=== PATIENT | female | born 1945 | race Caucasian/White ===

== ENCOUNTER → 2017-04-22 | Outpatient (CLI) | payer MEDICARE ==
[~2017-04-22] MED LIST: CHOL100012 PO; CRAN300T PO; LACT1CAP43 PO; LEVO25TA4 PO; LOVA40TA2 PO; NAPR220C2 PO; UBID100C24 PO; VALS1TAB24 PO; VIT1TABL32 PO; [UNRECOGNIZED DRUG - CODE] PO
[2017-04-22 09:13] LABS: HEMATOCRIT 45.4 % (34.6-47.8); HEMOGLOBIN 15.3 g/dL (11.7-16.4); WHITE BLOOD COUNT 8.1 x10^3/uL (3.4-10)
[2017-04-22 09:19] LABS: PATH.CAST-FLAG NOT PRESENT; SPERM-FLAG NOT PRESENT; SRC-FLAG NOT PRESENT; XTAL-FLAG NOT PRESENT; YLC-FLAG NOT PRESENT
[2017-04-22 09:26] LABS: ASPARTATE AMINO TRANSFERASE 15 U/L (15-37); BLOOD UREA NITROGEN 18 mg/dL (7-18)
== END | disposition home or self-care (01) ==
LOC: STAR 07:58
PROVIDERS: ATTEND Orthopaedic Surgery
DX: M16.12 Unilateral primary osteoarthritis, left hip (principal); R82.79 Other abnormal findings on microbiological examination of urine
CPT/HCPCS: 36415; 80053; 81001; 85025; 87081; 87086; 93005

== ENCOUNTER 2017-05-06 05:38 | Inpatient (IN) | payer MEDICARE ==
[~2017-05-06] VITALS: Ht 165.1 cm; Wt 68.0 kg
[2017-05-06] MEDS ORDERED: LACTATED RINGERS 1,000 ML IV SCH (06:14)
[2017-05-06 06:40] VITALS: BP 112/72
[2017-05-06] MEDS ORDERED: FENTANYL PF 100 MCG/2ML ONE (06:45)
[2017-05-06] MEDS ORDERED: MIDAZOLAM 1 MG/ML, 2ML ONE (06:45)
[2017-05-06] MEDS ORDERED: TRANEXAMIC ACID 100 MG/ML, 10ML ONE (06:47)
[2017-05-06] MEDS ORDERED: KETOROLAC 60 MG/2 ML ONE (06:47)
[2017-05-06] MEDS ORDERED: SODIUM CHLORIDE 0.9% 50 ML ONE (06:48)
[2017-05-06] MEDS ORDERED: EPINEPHRINE 1 MG/ML, 1ML ONE (06:48)
[2017-05-06] MEDS ORDERED: ROPIvacaine/PF 0.2%, 20 ML ONE (06:48)
[2017-05-06] MEDS ORDERED: CEFAZOLIN 1,000 MG ONE (07:51)
[2017-05-06] MEDS ORDERED: EPHEDRINE 50 MG/ML, 1ML ONE (07:51)
[2017-05-06] MEDS ORDERED: PROPOFOL 10 MG/ML, 20ML ONE (07:51)
[2017-05-06] MEDS ORDERED: DEXAMETHASONE 4 MG/ML, 1ML ONE (07:51)
[2017-05-06] MEDS ORDERED: ONDANSETRON 2MG/ML, 2ML ONE (07:51)
[2017-05-06] MEDS ORDERED: VASOPRESSIN 20 UNIT/ML, 1ML ONE (07:52)
[2017-05-06] MEDS ORDERED: DIAZEPAM 5 MG/ML, 2ML IVPush PRN (08:00)
[2017-05-06] MEDS ORDERED: MIDAZOLAM 1 MG/ML, 2ML IV PRN (08:00)
[2017-05-06] MEDS ORDERED: FENTANYL PF 100 MCG/2ML IV PRN (08:00)
[2017-05-06] MEDS ORDERED: EPHEDRINE 50 MG/ML, 1ML IVPush PRN (08:00)
[2017-05-06] MEDS ORDERED: PROMETHAZINE 25 MG/ML, 1ML IV PRN (08:00)
[2017-05-06] MEDS ORDERED: MEPERIDINE/PF 25MG/0.5ML IVPush PRN (08:00)
[2017-05-06] MEDS ORDERED: HYDROmorphone 1 MG/ML, 1ML IV PRN ×2 (08:00→09:00)
[2017-05-06] MEDS ORDERED: OXYcodone 5 MG/5 ML ORAL.SOL UDC PO PRN (08:00)
[2017-05-06] MEDS ORDERED: ONDANSETRON 2MG/ML, 2ML IVPush PRN (08:00)
[2017-05-06] MEDS ORDERED: METOPROLOL 1 MG/ML, 5ML IV PRN (08:00)
[2017-05-06] MEDS ORDERED: hydrALAzine 20 MG/ML, 1ML IV PRN (08:00)
[2017-05-06] MEDS ORDERED: LABETALOL 5MG/ML, 20ML IV PRN (08:00)
[2017-05-06] MEDS ORDERED: ALBUTEROL SULFATE 2.5 MG/3 ML NPPB PRN (08:00)
[2017-05-06] MEDS ORDERED: ONDANSETRON 2MG/ML, 2ML IV PRN (09:00)
[2017-05-06] MEDS ORDERED: DIAZEPAM 5 MG TABLET PO PRN (09:00)
[2017-05-06] MEDS ORDERED: PROMETHAZINE 25 MG/ML, 1ML IM PRN (09:00)
[2017-05-06] MEDS ORDERED: MAGNESIUM HYDROXIDE 8%, 30ML UDC PO PRN (09:00)
[2017-05-06] MEDS ORDERED: BISACODYL 10 MG SUPP PR PRN (09:00)
[2017-05-06] MEDS ORDERED: ZOLPIDEM 5MG TABLET PO PRN (09:00)
[2017-05-06] MEDS ORDERED: ALUMINUM/MAG/SIMETHICONE 30 ML UDC PO PRN (09:00)
[2017-05-06] MEDS ORDERED: SENNA/DOCUSATE TABLET PO PRN (09:00)
[2017-05-06] MEDS ORDERED: TRANEXAMIC ACID 1,000 MG in SODIUM CHLORIDE 0.9% 100 ML IVPB ONE (09:00)
[2017-05-06] MEDS: LEVOTHYROXINE 25 MCG TABLET PO SCH (09:00)
[2017-05-06] MEDS ORDERED: SCOPOLAMINE PATCH, 1MG PATCH.TD72 TD PRN (09:00)
[2017-05-06] MEDS ORDERED: PROMETHAZINE 12.5 MG SUPP PR PRN (09:00)
[2017-05-06] MEDS ORDERED: DIPHENHYDRAMINE 25 MG CAPSULE PO PRN (09:00)
[2017-05-06] MEDS ORDERED: OXYcodone IR 5MG TABLET PO PRN (09:00)
[2017-05-06] MEDS ORDERED: ONDANSETRON 4 MG TABLET PO PRN (09:00)
[2017-05-06] MEDS: D5%-0.45% NACL 1,000 ML IV SCH ×2 (11:40→20:00)
[2017-05-06] MEDS: VALSARTAN PO SCH (11:41)
[2017-05-06] MEDS: DOCUSATE 100 MG CAPSULE PO SCH ×2 (11:41→22:01)
[2017-05-06] MEDS: [UNRECOGNIZED DRUG - OTHER] PO SCH (11:41)
[2017-05-06] MEDS: HYDROCHLOROTHIAZIDE PO SCH (11:41)
[2017-05-06] MEDS: MULTIVITAMINS/MINERALS TABLET PO SCH (11:42)
[2017-05-06] MEDS: TAMSULOSIN 0.4 MG CAP.ER.24H PO SCH (11:42)
[2017-05-06] MEDS: CHOLECALCIFEROL 1,000 UNIT TABLET PO SCH (11:43)
[2017-05-06 13:18] VITALS: BP 119/66
[2017-05-06] MEDS: CEFAZOLIN PMX 2GM/50ML 50 ML IVPB SCH ×2 (15:49→22:50)
[2017-05-06 19:31] VITALS: BP 131/84
[2017-05-06] MEDS ORDERED: LOVASTATIN 40 MG TABLET PO SCH (21:00)
[2017-05-07 00:39] VITALS: BP 126/78
[2017-05-07] MEDS: D5%-0.45% NACL 1,000 ML IV SCH (01:54)
[2017-05-07 04:07] VITALS: BP 119/73
[2017-05-07 05:03] LABS: HEMATOCRIT 35.2 % (34.6-47.8); HEMOGLOBIN 12.1 g/dL (11.7-16.4)
[2017-05-07] MEDS ORDERED: DEXAMETHASONE 4 MG/ML, 1ML IVPush SCH (06:00)
[2017-05-07] MEDS: MULTIVITAMINS/MINERALS TABLET PO SCH (08:12)
[2017-05-07] MEDS: CHOLECALCIFEROL 1,000 UNIT TABLET PO SCH (08:12)
[2017-05-07] MEDS: LEVOTHYROXINE 25 MCG TABLET PO SCH (08:12)
[2017-05-07] MEDS: TAMSULOSIN 0.4 MG CAP.ER.24H PO SCH (08:12)
[2017-05-07] MEDS: DOCUSATE 100 MG CAPSULE PO SCH (08:15)
[2017-05-07 08:18] VITALS: BP 112/60
[2017-05-07] MEDS: [UNRECOGNIZED DRUG - OTHER] PO SCH (08:59)
[2017-05-07] MEDS: VALSARTAN PO SCH (08:59)
[2017-05-07] MEDS: HYDROCHLOROTHIAZIDE PO SCH (08:59)
[2017-05-07] MEDS ORDERED: KETOROLAC 30 MG/1 ML IV SCH (09:00)
[2017-05-07 10:52] VITALS: BP 107/61
[2017-05-07] MEDS ORDERED: OXYC5CAP2 PO (11:07)
[2017-05-07] MEDS ORDERED: ASPIRIN 81 MG TABLET EC PO SCH (18:00)
== END 2017-05-07 11:25 | disposition home or self-care (01) | DRG 470 ==
LOC: ORIP 05:38 → 4NOR 09:38 → DCLOUNGE 05-07 11:00
PROVIDERS: ADMIT Orthopaedic Surgery; ATTEND Orthopaedic Surgery
PROC: 0SRB0JZ Replacement of Left Hip Joint with Synthetic Substitute, Open Approach (ICD-10-PCS; principal; 2017-05-06 07:30)
DX: M16.12 Unilateral primary osteoarthritis, left hip (principal); I10 Essential (primary) hypertension; E03.9 Hypothyroidism, unspecified; E78.5 Hyperlipidemia, unspecified; Z88.8 Allergy status to other drugs, medicaments and biological substances
CPT/HCPCS: 36415; 72170; 85014; 85018; 86850; 86870; 86900; 86922; 86923; C1713; J0171; J0690; J1100; J1885; J2250; J2405; J2704; J2795; J3010; C1776; J7120

== ENCOUNTER → 2020-05-25 | Outpatient (CLI) | payer MEDICARE ==
[~2020-05-25] MED LIST changes: +OXYC5CAP2 PO; -VALS1TAB24 PO; +VALS1TAB25 PO; +[UNRECOGNIZED DRUG - CODE] PO; -[UNRECOGNIZED DRUG - CODE] PO
[2020-05-25 07:53] LABS: BASOPHILS % (AUTO) 1 % (0-1); EOSINOPHILS % (AUTO) 2 % (1-7); LYMPHOCYTES % (AUTO) 31 % (22-44); MEAN CORPUSCULAR HEMOGLOBIN 30.2 pg (27.0-34.8); MEAN CORPUSCULAR HGB CONC 33.6 g/dL (32.4-35.8); MEAN PLATELET VOLUME 7.2 fL (7.4-10.4); MONOCYTES % (AUTO) 7 % (2-9); NEUTROPHILS % (AUTO) 60 % (42-75); PLATELET COUNT 288 x10^3/uL (130-400); RED BLOOD COUNT 5.27 x10^6/uL (3.82-5.3); RED CELL DISTRIBUTION WIDTH 13.5 % (9.6-15.2)
[2020-05-25 07:59] LABS: MD NO
[2020-05-25 08:16] LABS: ALANINE AMINOTRANSFERASE 24 U/L (12-78); ALBUMIN 3.9 g/dL (3.4-5.0); ANION GAP 9 mmol/L (5-15); CALCIUM 9.1 mg/dL (8.5-10.1); CHLORIDE 110 mmol/L (98-107); CREATININE 0.81 mg/dL (0.55-1.02)
[2020-05-25 08:42] LABS: ALKALINE PHOSPHATASE 96 U/L (45-117); BILIRUBIN,TOTAL 0.8 mg/dL (0.2-1.0); CHOL/HDL RATIO 4.4; CHOLESTEROL, TOTAL 221 mg/dL (140-239); HDL CHOL % 23 % (28-40); HDL CHOLESTEROL (DIRECT) 50 mg/dL (40-60); LDL CHOLESTEROL,CALCULATED 125 mg/dL (54-169); LDL/HDL RATIO 2.5 (0.5-3.0); TOTAL PROTEIN 7.4 g/dL (6.4-8.2); TRIGLYCERIDES 229 mg/dL (50-200); VLDL CHOLESTEROL 46 mg/dL (0-25)
[2020-05-25 08:56] LABS: FREE T4 (FREE THYROXINE) 0.95 ng/dL (0.76-1.46)
== END | disposition home or self-care (01) ==
LOC: LAB 07:29
PROVIDERS: ATTEND Internal Medicine
DX: I10 Essential (primary) hypertension (principal); M89.9 Disorder of bone, unspecified; E78.5 Hyperlipidemia, unspecified; R73.01 Impaired fasting glucose; R55 Syncope and collapse; E03.9 Hypothyroidism, unspecified
CPT/HCPCS: 36415; 80053; 80061; 82043; 82306; 82570; 82607; 83036; 84439; 84443; 85025